=== PATIENT | male | born 1930 | race Caucasian/White ===

== ENCOUNTER → 2017-04-07 | Day surgery (SDC) | payer MEDICARE, OTHER ==
[~2017-04-07] VITALS: Ht 180.3 cm; Wt 91.3 kg
[~2017-04-07] MED LIST: ACETAMINOPHEN 1000 MG/100 ML 100 ML IV SCH; ALEV220T14 PO; AMLO10TA2 PO; ASPI1TAB57 PO; ATOR10TA15 PO; BACITRACIN TOP OINT 15 GM TUBE ONE; BALANCED SALT SOLN OPHT IRRIG 15 ML BTL ONE; CALC600T5 PO; CARB25TA9 PO; CARV3.12 PO; CHLORHEXIDINE GLUCONATE 2 % 1 PACK (2 CLOTHS) TOPICAL PRN; D-3-50003 PO; DEXAMETHASONE SOD PHOS 4 MG/ML VIAL IV ONE; DEXTROSE 5%-LACTATED RING INJ 1,000 ML IV SCH; DO NOT ADM ANY ANTICOAGULANT DRUGS PRN; ENAL5TAB PO; EPINEPHrine HCL (1:1000) 1 MG/ML VIAL ONE; GLYCOPYRROLATE 1 MG/5 ML SYRINGE IV PUSH ONE; LACTATED RINGER'S 1000 ML INJ 1,000 ML IV ONE; LACTATED RINGER'S 1000 ML IV PRN; LIDOCAINE 1%/EPINEPHrine 1:100,000 SOLN 20 ML VIAL ONE; LIDOCAINE HCL 1% PF 5 ML SYRINGE OTHER ONE; METOPROLOL TARTRATE 25 MG TAB PO PRN; MIRA0.5T PO; MORPHINE SULFATE 2 MG/ML INJ IV PRN; MUPIROCIN 2% OINT 22 GM TUBE ONE; NAPROXEN 500 MG TAB PO SCH; NEOMYCIN/POLYMYXIN/HYDROCORT OTIC SOLN 10 ML BTL ONE; NEOSTIGMINE 5 MG/5 ML SYRINGE IV PUSH ONE; ONDANSETRON HCL 4 MG/2 ML VIAL IV PRN; ONDANSETRON HCL 4 MG/2 ML VIAL IV PUSH ONE; PHENYLEPH/NS 1000 MCG/10 ML SYR IV ONE; POVIDONE IODINE 5% (ANTISEPSIS KIT) 4 APPLICATIONS EACH NARE PRN; PROPOFOL 200 MG/20 ML AMP IV ONE; ROCURONIUM INJ 50 MG/5 ML SYRINGE IV PUSH ONE; SODIUM BICARBONATE 8.4% INJ 50 MEQ/50 ML SYR ONE; SODIUM CHLORID 0.9% 500 ML IV PRN; TOBRAMYCIN SULFATE 0.3% OPTH OINT 3.5 GM TUBE ONE; VANCOMYCIN 1,000 MG/NS 250 ML IV ONE; ceFAZolin 2 GM PREMIX 50 ML IV ONE; ePHEDrine/NS 25 MG/5 ML SYR IV ONE
--- NOTE | 2017-04-07 13:08 | MP ---
cc: CAYDEN CHICAS M.D. DATE OF SURGERY 04/07/2017 PREOPERATIVE DIAGNOSIS 1. 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 3. 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 4. 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 5. 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 POSTOPERATIVE DIAGNOSIS 1. 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 3. 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 4. 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 5. 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 OPERATION PERFORMED 1. Wide local excision of a 2 cm squamous cell carcinoma on the anterior forehead with 1 cm margins. Frozen section control margins clear. Complex repair 8 cm in length. 2. Wide local excision of a 2 cm squamous cell carcinoma on the posterior scalp with 1 cm margins. Frozen section control clear and an 8 cm complex repair. 3. Wide local excision of 2 cm squamous cell carcinoma left zygoma with 1 cm margins and frozen section control margins Clear and complex repair 8 cm in length. 4. Wide local incision of 1 cm squamous cell carcinoma right neck and 1 cm margins and frozen section control margins clear, complex repair 9 cm in length. 5. 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 SURGEON Dr. Cayden Chicas COMPOUNDING ASSISTANT Tico Lombardo ANESTHESIA General endotracheal with local infiltration of 1% Xylocaine 1:1000 epinephrine. DRAINS None COMPLICATIONS None ESTIMATED BLOOD LOSS Minimal FLUID REPLACEMENT One liter crystalloid. PATHOLOGY Frozen section of forehead, scalp, left zygoma, right neck and right helical rim. DESCRIPTION OF OPERATION The patient was seen in the preop area. All the lesions were marked with a 1 cm margin around them. Elliptical excisions were all marked. The patient was given IV vancomycin and Ancef, brought to the operating room where he is placed on the operating table with pneumatic compression garments on his lower extremities, placed under general endotracheal anesthesia. The table was turned. A time-out was done, all concurred and the areas were infiltrated 1% Xylocaine with 1:1000 epinephrine, 20 cc of 1% Xylocaine with 1:100,000 epinephrine. The face and head were completely prepped and draped in a sterile fashion. The lesion on the forehead had been outlined in the transverse direction of the forehead in the dimension stated above. It was elliptically excised as drawn down including the flap down to, but preserving the periosteum intact. Meticulous hemostasis was obtained with electrocautery. This specimen was sent to pathology for examination. Frozen section revealed it was clear. A skin expansion tech was used to close the wound with a 4-0 Prolene vertical mattress fashion gradually bringing the wound together and then skin stapling behind it and tying. The lesion on the posterior scalp was outlined as a fusiform incision obliquely to allow the wound to be brought together, it was excised as drawn. Frozen section revealed margins clear and then meticulous hemostasis obtained with electrocautery and the wound was closed with a running vertical mattress suture of 4-0 Prolene doing a skin expansion technique closure with skin blanca behind. The lesion on the left zygoma was outlined curvilinear in the direction of the skin lines mentioned as stated above. It was excised as drawn with the wound margins undermined and allowed to be brought together. Meticulous hemostasis was obtained with electrocautery. The frozen section revealed margins clear. The wound was closed with a running vertical mattress suture of 4-0 Prolene and skin expansion technique closed and then skin stapled behind it. The lesion on the right neck was outlined in the direction of the skin lines as a fusiform excision. The area was excised as drawn. Meticulous hemostasis obtained with electrocautery. The frozen section control revealed margins clear. The wound was closed with a running vertical mattress suture of 4-0 Prolene skin expansion technique and skin blanca. The lesion on the helical rim was outlined along with a fusiform incision along the concurred with the part of the helical rim. It was excised with a 1 cm margins and sent to pathology margins clear. Meticulous hemostasis obtained with electrocautery and then the wound was closed with meticulous 5-0 Prolene catching in the skin edges on both sides and closing this on down along the helical rim. The wounds were all cleaned. Bactroban applied. Dressing was applied. The patient tolerated the procedure well, was awakened, extubated, transferred to the stretcher and sent to the recovery room in satisfactory condition. MD HARINDER Butts/LADAN /11:35 AM /12:43 PM
[2017-04-07 14:23] VITALS: BP 168/87; PULSE 58; RESP 18; TEMP 97.6; O2SAT 96
--- NOTE | 2017-04-07 14:57 | EKG ---
Date Performed: 04/07/2017 Time Performed: 07:54:44 PTAGE: 86 years EKG: Sinus rhythm POSSIBLE ANTERIOR MYOCARDIAL INFARCTION , OF INDETERMINATE AGE ABNORMAL ECG PREVIOUS TRACING : 03/10/2012 22.52 DOCTOR: Tutu Doran Interpretating Date/Time 04/07/2017 14:56:26
== END | disposition home or self-care (01) ==
LOC: HSDC 07:11
PROVIDERS: ATTEND Plastic Surgery
DX: C44.329 Squamous cell carcinoma of skin of other parts of face (principal); C44.42 Squamous cell carcinoma of skin of scalp and neck; C44.222 Squamous cell carcinoma of skin of right ear and external auricular canal; I10 Essential (primary) hypertension
CPT/HCPCS: 00300; 11621; 11622; 11641; 11642; 13121; 13122; 13132; 13133; 13152; 88305; 88331; 93005; J1100; J2370; J2405; J2710; J3010; J3370; J7050; J7120; J0171